=== PATIENT | male | born 1995 | race Caucasian/White ===

== ENCOUNTER → 2020-05-27 | Outpatient (CLI) | payer OTHER | LOC: HYPER 13:10 | PROVIDERS: ATTEND Emergency Medicine | DX: L97.311 Non-pressure chronic ulcer of right ankle limited to breakdown of skin (principal); S90.561A Insect bite (nonvenomous), right ankle, initial encounter; L08.89 Other specified local infections of the skin and subcutaneous tissue; S90.522A Blister (nonthermal), left ankle, initial encounter; S90.521A Blister (nonthermal), right ankle, initial encounter; J45.909 Unspecified asthma, uncomplicated; W57.XXXA Bitten or stung by nonvenomous insect and other nonvenomous arthropods, initial encounter; Y93.89 Activity, other specified; Y92.89 Other specified places as the place of occurrence of the external cause; Y99.8 Other external cause status ==

== ENCOUNTER → 2020-06-03 | Outpatient (CLI) | payer OTHER | LOC: HYPER 13:26 | PROVIDERS: ATTEND Emergency Medicine | DX: S90.522D Blister (nonthermal), left ankle, subsequent encounter (principal); S90.521D Blister (nonthermal), right ankle, subsequent encounter; S90.561D Insect bite (nonvenomous), right ankle, subsequent encounter; L97.311 Non-pressure chronic ulcer of right ankle limited to breakdown of skin; L08.89 Other specified local infections of the skin and subcutaneous tissue; J45.909 Unspecified asthma, uncomplicated; W57.XXXD Bitten or stung by nonvenomous insect and other nonvenomous arthropods, subsequent encounter ==

== ENCOUNTER → 2020-06-10 | Outpatient (CLI) | payer OTHER | LOC: HYPER 14:45 | PROVIDERS: ATTEND Emergency Medicine | DX: L97.311 Non-pressure chronic ulcer of right ankle limited to breakdown of skin (principal); L97.321 Non-pressure chronic ulcer of left ankle limited to breakdown of skin; S90.561D Insect bite (nonvenomous), right ankle, subsequent encounter; L08.89 Other specified local infections of the skin and subcutaneous tissue; J45.909 Unspecified asthma, uncomplicated; W57.XXXD Bitten or stung by nonvenomous insect and other nonvenomous arthropods, subsequent encounter ==

== ENCOUNTER → 2020-07-05 | Outpatient (CLI) | payer OTHER | LOC: HYPER 14:34 | PROVIDERS: ATTEND Emergency Medicine | DX: L97.311 Non-pressure chronic ulcer of right ankle limited to breakdown of skin (principal); L97.321 Non-pressure chronic ulcer of left ankle limited to breakdown of skin; S90.561D Insect bite (nonvenomous), right ankle, subsequent encounter; L08.89 Other specified local infections of the skin and subcutaneous tissue; J45.909 Unspecified asthma, uncomplicated; W57.XXXD Bitten or stung by nonvenomous insect and other nonvenomous arthropods, subsequent encounter ==